=== PATIENT | female | born 1995 | race American Indian/Alaskan Native ===

== ENCOUNTER 2016-10-24 19:20 | Emergency (ER) | payer OTHER ==
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
[2016-10-24 21:00] VITALS: BP 112/84
[2016-10-24] MEDS ORDERED: NORCO 5/325 ONE (21:25)
[2016-10-24] MEDS ORDERED: NORCO 5/325 PO ONE (21:27)
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
== END 2016-10-24 23:04 | disposition home or self-care (01) ==
LOC: ED 19:20
DX: R07.89 Other chest pain (principal); R51 Headache; J45.909 Unspecified asthma, uncomplicated; V49.49XA Driver injured in collision with other motor vehicles in traffic accident, initial encounter; Y93.9 Activity, unspecified; Y92.9 Unspecified place or not applicable; Y99.9 Unspecified external cause status
CPT/HCPCS: 71020; 99284